=== PATIENT | male | born 1980 | race Caucasian/White ===

== ENCOUNTER 2018-04-04 01:26 | Emergency (ER) | payer MEDICARE ==
[2018-04-04] MEDS ORDERED: Acetaminophen 500 MG TAB ONE (02:27)
[2018-04-04] MEDS ORDERED: Benzonatate 100 MG CAP ONE (02:27)
[2018-04-04] MEDS ORDERED: Azithromycin 250 MG TAB ONE (02:50)
--- NOTE | 2018-04-04 10:09 | RAD ---
CHEST 2 VIEWS: Date: 04/04/18 No prior films available for comparison. There is no lobar consolidation or effusion. The lung markings in the lower lobes are minimally promi nent. This may be the patient's normal, but could be due to bronchitis or minimal infection. The uppe r lobes are clear. The mediastinum appears normal. The cardiac silhouette is normal. The trachea is m idline. IMPRESSION: Questionable prominence of basilar lung markings. POS: HOME
== END 2018-04-04 02:50 | disposition home or self-care (01) ==
LOC: BURERS 01:26
DX: J20.9 Acute bronchitis, unspecified (principal); Z79.899 Other long term (current) drug therapy; F17.210 Nicotine dependence, cigarettes, uncomplicated
CPT/HCPCS: 71046; 87804; J1885

== ENCOUNTER 2018-04-04 18:58 | Emergency (ER) | payer MEDICARE ==
[2018-04-04] MEDS ORDERED: Ketorolac Tromethamine 60 MG/2 ML VIAL ONE (19:23)
== END 2018-04-04 19:48 | disposition home or self-care (01) ==
LOC: BURERS 18:58
DX: J11.1 Influenza due to unidentified influenza virus with other respiratory manifestations (principal); Z79.899 Other long term (current) drug therapy
CPT/HCPCS: J1885

== ENCOUNTER 2021-07-27 19:07 | Emergency (ER) | payer OTHER, MEDICARE ==
[2021-07-27] MEDS ORDERED: Boostrix 0.5 ML (Tdap) VIAL ONE (19:22)
== END 2021-07-27 20:02 | disposition home or self-care (01) ==
LOC: BURERS 19:07
DX: S61.211A Laceration without foreign body of left index finger without damage to nail, initial encounter (principal); I10 Essential (primary) hypertension; E78.00 Pure hypercholesterolemia, unspecified; Z23 Encounter for immunization; Z79.899 Other long term (current) drug therapy; W26.0XXA Contact with knife, initial encounter
CPT/HCPCS: 12001; 90471; 90715

== ENCOUNTER 2022-03-29 19:34 | Emergency (ER) | payer MEDICARE ==
[2022-03-29] MEDS ORDERED: Ibuprofen 200 MG TAB ONE (19:52)
[2022-03-29] MEDS ORDERED: traMADol HCl 50 MG TAB ONE (19:52)
[2022-03-29] MEDS ORDERED: Amoxicillin/Potassium Clav 875 MG TAB ONE (20:14)
[2022-03-29] MEDS ORDERED: Dexamethasone 10 MG/ML VIAL ONE (20:32)
[2022-03-29] MEDS ORDERED: HYDROmorphone 0.5 MG/0.5 ML SYRINGE ONE (21:05)
== END 2022-03-29 21:44 | disposition home or self-care (01) ==
LOC: BURERS 19:34
DX: G43.909 Migraine, unspecified, not intractable, without status migrainosus (principal); J01.20 Acute ethmoidal sinusitis, unspecified; I10 Essential (primary) hypertension; E78.00 Pure hypercholesterolemia, unspecified; F17.210 Nicotine dependence, cigarettes, uncomplicated; Z79.899 Other long term (current) drug therapy
CPT/HCPCS: 70450; 96372; J1100; J1170